=== PATIENT | female | born 2000 | race African-American/Black ===

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

== ENCOUNTER 2019-01-03 13:59 | Day surgery (SDC) | payer MEDICAID ==
[~2019-01-03 13:59] MED LIST: DEXTROSE 40% GEL 15 GM TUBE PO PRN; DEXTROSE 50%-WATER 25 GM/50 ML DISP.SYRIN IV PRN; GLUCAGON,HUMAN RECOMB 1 MG INJ SUBCUT PRN; MORPHINE SULFATE 10 MG/ML INJ IV PRN; NORMAL SALINE 1000 ML 1,000 ML IV PRN
--- NOTE | 2019-01-03 14:08 | PDOC H&P ---
History of Present Illness Admission Date/PCP: 01/03/19 12:26 CHRISTIANE GUERRA MD Patient complains of: Buttocks pain History of Present Illness: SHANTAL VÁZQUEZ is a 18 year old female presenting with 2-week history of mid buttocks pain progressively worsening despite being placed on antibiotics with subsequent drainage recently. Prior history of pilonidal cyst infection treated with antibiotics couple of years ago. No problems up until recently. Patient is healthy otherwise. Past Medical History Medical History: None Cardiac Medical History: Reports: None Social History Smoking Status: Never Smoker Frequency of Alcohol Use: None Hx Recreational Drug Use: No Drugs: None Hx Prescription Drug Abuse: No Family History Family History: None, Reviewed & Not Pertinent - Grandmother with diabetes and breast cancer Parental Family History Reviewed: Yes Children Family History Reviewed: Yes Sibling(s) Family History Reviewed.: Yes Medication/Allergy Home Medications: Sulfamethoxazole/Trimethoprim [Bactrim Ds Tablet] 1 each PO BID #20 tablet 12/25/18 Allergies/Adverse Reactions: No Known Allergies Allergy (Verified 12/25/18 10:59) Review of Systems All systems: reviewed and no additional remarkable complaints except as stated Integumentary: PRESENT: as per HPI Physical Exam Vital Signs: Temp Pulse Resp BP Pulse Ox 99.7 F 135 H 16 122/79 98 01/03/19 13:06 01/03/19 13:06 01/03/19 13:06 01/03/19 13:06 01/03/19 13:06 Intake & Output 01/02/19 01/03/19 01/04/19 06:59 06:59 06:59 Weight 76.1 kg General appearance: PRESENT: no acute distress, cooperative Eye exam: PRESENT: conjunctiva pink Neck exam: PRESENT: other - Supple with no tenderness and no masses Respiratory exam: PRESENT: clear to auscultation gera Cardiovascular exam: PRESENT: RRR GI/Abdominal exam: PRESENT: other - Soft, nondistended, nontender to palpation Extremities exam: PRESENT: other - No swelling and no tenderness Neurological exam: PRESENT: alert, awake Psychiatric exam: PRESENT: appropriate affect Skin exam: PRESENT: other - Midline upper buttocks with the fluctuance and tenderness with a small opening at the midline with purulent drainage. The fluctuance and induration more on the left side. Assessment & Plan - Diagnosis (1) Pilonidal cyst with abscess Is this a current diagnosis for this admission?: Yes Plan: We will plan to drain the abscess via making an opening lateral to the midline on the left. Once the abscess has resolved and the sacral skin edema has resolved, patient will require a pit picking in the office in 2 to 3 weeks. I have explained to the patient the nature of the surgery and the rationale for avoiding an incision at the midline (prolonged wound healing) and the need for additional surgery after she has had resolution of the abscess to decrease risk of recurrence. She understands risk of infection, bleeding, prolonged wound healing, need for additional surgery and recurrence. She understands and agrees to proceed.
[2019-01-03] MEDS: CEFAZOLIN 1 GM/D5W RTU 1 GM/50 ML RTUPB IV SCH ×2 (14:51→22:37)
[2019-01-03 14:52] LABS: HEMATOCRIT 36.3 % (36.0-47.0); HEMOGLOBIN 11.8 g/dL (12.0-15.5); MEAN CORPUSCULAR HEMOGLOBIN 27.7 pg (27.0-33.4); MEAN CORPUSCULAR HGB CONC 32.6 g/dL (32.0-36.0); MEAN CORPUSCULAR VOLUME 85 fl (80-97); PLATELET COUNT 462 10^3/uL (150-450); RED BLOOD COUNT 4.27 10^6/uL (3.72-5.28); RED CELL DISTRIBUTION WIDTH 13.3 % (11.5-14.0); WHITE BLOOD COUNT 13.1 10^3/uL (4.0-10.5)
[2019-01-03 15:11] LABS: ANION GAP 11 (5-19); BLOOD UREA NITROGEN 9 mg/dL (7-20); CALCIUM 10.4 mg/dL (8.4-10.2); CARBON DIOXIDE 27 mmol/L (22-30); CHLORIDE 99 mmol/L (98-107); GLUCOSE 95 mg/dL (75-110); POTASSIUM 4.1 mmol/L (3.6-5.0)
[2019-01-03] MEDS ORDERED: BUPIVACAINE HCL 0.25 % INJ/PF (2.5 MG/1 ML) 30 ML VIAL ONE (20:13)
[2019-01-03] MEDS ORDERED: MIDAZOLAM 2 MG/2 ML INJ ONE (20:42)
[2019-01-03] MEDS ORDERED: FENTANYL CITRATE INJ/PF 100 MCG/2 ML AMPUL ONE (20:42)
[2019-01-03] MEDS ORDERED: KETAMINE HCL INJ 500 MG/10 ML VIAL ONE (20:42)
[2019-01-03] MEDS ORDERED: PROPOFOL INJ 200 MG/20 ML VIAL IV ONE (20:43)
[2019-01-03] MEDS ORDERED: CEFAZOLIN INJ 1 GM VIAL ONE (20:52)
[2019-01-03] MEDS ORDERED: FENTANYL CITRATE INJ/PF 100 MCG/2 ML AMPUL IV PRN ×3 (21:17)
[2019-01-03] MEDS ORDERED: MORPHINE SULFATE 10 MG/ML INJ IV PRN ×2 (21:17→21:50)
[2019-01-03] MEDS ORDERED: DIPHENHYDRAMINE HCL 50 MG/ML VIAL IV PRN (21:17)
[2019-01-03] MEDS ORDERED: OXYCODONE-ACETAMINOPHEN 5-325 MG TABLET PO PRN ×2 (21:17)
[2019-01-03] MEDS ORDERED: PROMETHAZINE HCL INJ 25 MG/1 ML VIAL IV PRN ×2 (21:17)
[2019-01-03] MEDS ORDERED: MEPERIDINE HCL/PF INJ 25 MG/1 ML DISP.SYRIN IV PRN (21:17)
[2019-01-03] MEDS ORDERED: ONDANSETRON HCL INJ/PF 4 MG/2 ML SDV IV PRN (21:17)
--- NOTE | 2019-01-03 21:48 | Operative Report ---
Operative Report DATE OF SURGERY: 01/03/19 PREOPERATIVE DIAGNOSIS: Pilonidal cyst abscess POSTOPERATIVE DIAGNOSIS: Same OPERATION: Drainage of pilonidal cyst abscess SURGEON: HERMINIA GUERRERO ANESTHESIA: LMAC TISSUE REMOVED OR ALTERED: Pus removed from pilonidal cyst abscess and submitted for Gram stain and culture COMPLICATIONS: None ESTIMATED BLOOD LOSS: 20 cc INTRAOPERATIVE FINDINGS: Approximately 6 x 6 cm abscess cavity at the midline buttocks with approximately one centimeter opening at the midline. PROCEDURE: Informed consent was obtained. Patient was brought to the operating room and placed on the operating table in the prone position. The procedure was done at the [facility]. Patient's buttocks was prepped and draped in usual sterile fashion and her buttocks was taped apart. Local anesthetic was used during the case. Pus was swabbed for Gram stain and culture. Inspection of her upper buttocks revealed at the midline approximately a 1 cm opening. The underlying cavity was about 6 x 6 cm in size. And it extended toward the left side. Away from the midline on the left side a 1.5 cm in diameter [place] of skin was excised allowing a wider avenue for drainage away from the midline. Suction catheter was placed through this opening and the abscess cavity was completely aspirated out. Using a curette the abscess cavity was curetted. Debris was removed. The midline opening edge was also curetted . there was some oozing at the abscess bed. The abscess cavity was copiously irrigated and irrigant aspirated out. To obtain hemostasis the abscess cavity was packed with gauze. Patient tolerated procedure well with no apparent complications and was taken to the recovery area in stable condition.
[2019-01-03] MEDS ORDERED: NORMAL SALINE 1000 ML 1,000 ML IV PRN (21:50)
[2019-01-03] MEDS ORDERED: HYDROMORPHONE HCL INJ/PF 2 MG/ML AMPULE ONE (21:53)
[2019-01-03] MEDS ORDERED: ACETAMINOPHEN 1,000 MG/100 ML RTUPB IV ONE (21:54)
[2019-01-04] MEDS: CEFAZOLIN 1 GM/D5W RTU 1 GM/50 ML RTUPB IV SCH (06:49)
--- NOTE | 2019-01-04 07:52 | PDOC PROGRESS REPORT ---
Subjective Progress Note for:: 01/04/19 Subjective:: Feels much better. Reason For Visit: PILONIDAL CYST ABSCESS Physical Exam Vital Signs: Temp Pulse Resp BP Pulse Ox 98.7 F 84 16 102/61 100 01/04/19 00:15 01/04/19 00:15 01/04/19 00:15 01/04/19 00:15 01/04/19 00:15 Intake & Output 01/03/19 01/04/19 01/05/19 06:59 06:59 06:59 Intake Total 2420 50 Output Total 390 Balance 2030 50 Weight 76.5 kg General appearance: PRESENT: no acute distress, cooperative Skin exam: PRESENT: other - Wound packing removed. No bleeding. Wound is clean. Results Laboratory Results: 01/03/19 14:13 01/03/19 14:13 01/03/19 01/03/19 14:13 14:13 WBC 13.1 H RBC 4.27 Hgb 11.8 L Hct 36.3 MCV 85 MCH 27.7 MCHC 32.6 RDW 13.3 Plt Count 462 H Sodium 137.4 Potassium 4.1 Chloride 99 Carbon Dioxide 27 Anion Gap 11 BUN 9 Creatinine 0.88 Est GFR ( Amer) > 60 Est GFR (Non-Af Amer) > 60 Glucose 95 Calcium 10.4 H Assessment & Plan - Diagnosis (1) Pilonidal cyst with abscess Is this a current diagnosis for this admission?: Yes Plan: Status post surgical drainage. Patient looks good. Will discharge home. Follow-up next week. Will need pilonidal pit picking in the office in a few weeks. Discussed with patient
[2019-01-04 08:16] VITALS: BP 118/64
--- NOTE | 2019-01-04 10:48 | DISCHARGE SUMMARY E ---
Discharge Summary NAME: SHANTAL VÁZQUEZ : 2000 AGE: 18Y ADMITTED: 01/03/2019 DISCHARGED: 01/04/2019 DISCHARGE DIAGNOSIS: Pilonidal cyst abscess. PROCEDURE PERFORMED DURING HOSPITALIZATION: Pilonidal cyst abscess drainage, performed by Dr. Jet Guerrero on 01/03/2019. HOSPITAL COURSE: The patient underwent the above-mentioned procedure. She did well postoperatively. The packing was removed the morning of discharge and the wound looked good with no bleeding. Wound care instructions were given to the patient, that is to simply place sanitary napkins to collect drainage. No packing is required. She is encouraged to shower and wash this area each day gently and after each bowel movement. She is to call for any problems such as fever, foul-smelling drainage, increase in pain. She is to avoid prolonged sitting. She is to avoid strenuous activity. She may resume a regular diet. The patient already has a prescription for cephalexin that she will complete. Additional medication is Percocet 1 p.o. q.4 hours p.r.n. pain. FOLLOWUP: Was arranged at [facility] with Alexus Renteria next week. She will require pilonidal cyst pit picking as an outpatient in the next few weeks once inflammation has resolved. DICTATING PHYSICIAN: JET GUERRERO M.D. [id number] PHY#: [id number] ID: [id number] JOB#: [id number] ACCT: [id number] cc:JET GUERRERO M.D. > MTDMacey
== END 2019-01-04 10:35 | disposition home or self-care (01) ==
LOC: OROUT 13:59 → 4S 13:59 → UNDODISIN 01-04 10:35 → OROUT 01-04 10:35 → EDSTATUS 01-06 15:25
PROVIDERS: ATTEND Surgery
DX: L05.01 Pilonidal cyst with abscess (principal)
CPT/HCPCS: 36415; 87070; 87205; 85027; 81025; 87075; 87077; 80048; 87186; 00300; 10080; J2250; J0690 ×3; J3010; J3490 ×2; J2270 ×2; J1170; S0020; J7030; J2704; J0131; 300

== ENCOUNTER → 2019-03-31 | Outpatient (CLI) | payer MEDICAID ==
[2019-04-02 09:17] LABS: HEPATITS B SURFACE ANTIGEN Negative (Negative)
== END ==
LOC: OD 15:56
PROVIDERS: ATTEND Nurse Practitioner Family
DX: Z11.3 Encounter for screening for infections with a predominantly sexual mode of transmission (principal); Z86.19 Personal history of other infectious and parasitic diseases
CPT/HCPCS: 36415; 86592; 86701; 87340